=== PATIENT | male | born 1940 | race Hispanic/Latino ===

== ENCOUNTER 2020-01-09 17:25 | Emergency (ER) | payer MEDICARE ==
[2020-01-09] MEDS ORDERED: METOCLOPRAMIDE 10 MG/2 ML INJ IV ONE (18:29)
[2020-01-09] MEDS ORDERED: SODIUM CHLORIDE 0.9% 500 ML 500 ML IV ONE (18:29)
--- NOTE | 2020-01-09 18:31 | Emergency Department Report ---
ED General Adult HPI - General Chief complaint: Nausea/Vomiting/Diarrhea Stated complaint: NAUSEA,WEAKNESS PUI?: Yes Time Seen by Provider: 01/09/20 18:10 Source: patient, EMS ( EMS documentation not available at time of chart dictation ), RN notes reviewed, old records reviewed Mode of arrival: Stretcher Limitations: Physical Limitation - History of Present Illness Initial comments: The patient is a 79-year-old gentleman. I have evaluated him in the past. He does not have a local primary care doctor. During the entire history and physical examination, I had on complete personal protective equipment. Past medical history includes ruptured diverticulitis, and hypertension. Patient presents to the ER with a complaint of 3 to 4 days of mostly painless weakness. He has mild diffuse abdominal cramping and nausea, secondary to "being hungry." He endorses a mild headache, no neck pain, no chest pain, mild shortness of breath, question loss of taste or smell, no dysuria, hematuria or testicular pain. He lives at home by himself. He has mostly been self isolating and socially distance and, but "I have occasionally forgotten to wear my mask when I go outside." He was reportedly seen at another hospital last night, he believes [facility], and he was discharged. Patient lives at home by himself, and over the past few days, "mostly stays around the bed." -: Gradual, days(s) Location: head, abdomen Quality: aching Consistency: intermittent Improves with: rest Worsens with: movement - Related Data Home Medications Medication Instructions Recorded Confirmed Last Taken Lisinopril/Hydrochlorothiazide 1 tab PO QDAY 04/13/13 05/07/16 05/06/16 [Zestoretic 20-12.5 mg] Zolpidem [Ambien] 10 mg PO QHS PRN 04/13/13 05/08/16 05/06/16 Clopidogrel [Plavix] 75 mg PO QDAY 05/07/16 05/07/16 05/07/16 Tamsulosin [Flomax] 0.4 mg PO QDAY 05/07/16 05/07/16 05/07/16 Previous Rx's Medication Instructions Recorded Last Taken Type Dicyclomine [Bentyl] 10 mg PO QID PRN #20 capsule 05/08/16 Unknown Rx Ondansetron [Zofran Odt] 4 mg PO QID PRN #20 tab.rapdis 05/08/16 Unknown Rx polyethylene glycoL 3350 [Miralax 17 gm PO QDAY #30 packet 05/08/16 Unknown Rx 3350] Acetaminophen [Non-Aspirin Extra 500 mg PO Q6HR PRN #30 tablet 01/09/20 Unknown Rx Strength] Albuterol Sulfate [Proair 90 mcg IH Q4HR PRN #2 aer.pow.ba 01/09/20 Unknown Rx Respiclick] Metoclopramide [Reglan] 10 mg PO QID PRN #30 tablet 01/09/20 Unknown Rx Allergies Allergy/AdvReac Type Severity Reaction Status Date / Time Penicillins Allergy Rash Verified 04/13/13 13:47 ED Review of Systems ROS: Stated complaint: NAUSEA,WEAKNESS Other details as noted in HPI Constitutional: malaise, weakness. denies: fever Eyes: denies: eye discharge, vision change ENT: denies: throat pain Respiratory: cough, shortness of breath Cardiovascular: denies: chest pain, syncope Gastrointestinal: abdominal pain Genitourinary: denies: dysuria, testicular pain Musculoskeletal: myalgia Neurological: weakness Hematological/Lymphatic: easy bleeding ED Past Medical Hx - Past Medical History Previous Medical History?: Yes Hx Hypertension: Yes Hx CVA: Yes Hx Liver Disease: No Hx Renal Disease: No Hx HIV: No Additional medical history: hernia x 3. diverticulitis. 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, abd surgery - Social History Smoking Status: Never Smoker Substance Use Type: None - Medications Home Medications: Home Medications Medication Instructions Recorded Confirmed Last Taken Type Lisinopril/Hydrochlorothiazide 1 tab PO QDAY 04/13/13 05/07/16 05/06/16 History [Zestoretic 20-12.5 mg] Zolpidem [Ambien] 10 mg PO QHS PRN 04/13/13 05/08/16 05/06/16 History Clopidogrel [Plavix] 75 mg PO QDAY 05/07/16 05/07/16 05/07/16 History Tamsulosin [Flomax] 0.4 mg PO QDAY 05/07/16 05/07/16 05/07/16 History Dicyclomine [Bentyl] 10 mg PO QID PRN #20 capsule 05/08/16 Unknown Rx Ondansetron [Zofran Odt] 4 mg PO QID PRN #20 tab.rapdis 05/08/16 Unknown Rx polyethylene glycoL 3350 [Miralax 17 gm PO QDAY #30 packet 05/08/16 Unknown Rx 3350] Acetaminophen [Non-Aspirin Extra 500 mg PO Q6HR PRN #30 tablet 01/09/20 Unknown Rx Strength] Albuterol Sulfate [Proair 90 mcg IH Q4HR PRN #2 aer.pow.ba 01/09/20 Unknown Rx Respiclick] Metoclopramide [Reglan] 10 mg PO QID PRN #30 tablet 01/09/20 Unknown Rx ED Physical Exam - General Limitations: Physical Limitation General appearance: alert, in no apparent distress - Head Head exam: Present: atraumatic, normocephalic - Eye Eye exam: Present: normal appearance, EOMI, other (Visual acuity intact to finger counting, color perception, reading at a close distance). Absent: nystagmus - ENT ENT exam: Present: normal exam, normal orophraynx, mucous membranes moist, normal external ear exam - Neck Neck exam: Present: normal inspection, full ROM. Absent: tenderness, meningismus - Respiratory Respiratory exam: Present: other (Auscultation not performed secondary to lack of disposable stethoscope). Absent: respiratory distress, stridor - Cardiovascular Cardiovascular Exam: Present: other (Cardiac auscultation not performed secondary to lack of disposable stethoscope during the COVID pending). Absent: JVD - GI/Abdominal GI/Abdominal exam: Present: soft, normal bowel sounds. Absent: distended, tenderness, guarding, rebound, rigid, pulsatile mass - Rectal Rectal exam: Present: deferred - Extremities Exam Extremities exam: Present: normal inspection, full ROM, other (2+ pulses noted in the bilateral upper and lower extremities. There is no palpable cord. negative Homans sign. Muscular compartments are soft. The pelvis is stable.). Absent: pedal edema, calf tenderness - Back Exam Back exam: Present: normal inspection, full ROM. Absent: tenderness, CVA tenderness (R), CVA tenderness (L), paraspinal tenderness, vertebral tenderness - Neurological Exam Neurological exam: Present: alert, other (No facial droop. Tongue midline. Extraocular movements intact bilaterally. Facial sensation intact to light touch in V1, V2, V3 distribution bilaterally. 5 and a 5 strength in 4 extremities. Sensation intact to light touch in 4 extremities.). Absent: motor sensory deficit - Psychiatric Psychiatric exam: Present: flat affect - Skin Skin exam: Present: warm, dry, intact, normal color. Absent: rash ED Course Vital Signs 01/09/20 01/09/20 01/09/20 18:06 18:16 18:19 Temperature Pulse Rate 91 H Respiratory 14 15 Rate Blood Pressure 175/81 O2 Sat by Pulse 97 96 Oximetry 01/09/20 01/09/20 01/09/20 18:30 18:42 18:46 Temperature 98.2 F Pulse Rate 91 H 90 Respiratory 25 H 22 Rate Blood Pressure 181/85 181/85 O2 Sat by Pulse 95 98 Oximetry 01/09/20 01/09/20 01/09/20 19:00 19:16 19:30 Temperature Pulse Rate 87 90 89 Respiratory 18 22 19 Rate Blood Pressure 175/81 175/81 175/81 O2 Sat by Pulse 96 96 96 Oximetry 01/09/20 01/09/20 01/09/20 19:46 20:14 20:16 Temperature Pulse Rate 92 H 83 108 H Respiratory 18 23 Rate Blood Pressure 175/81 175/81 175/81 O2 Sat by Pulse 95 97 Oximetry 01/09/20 01/09/20 01/09/20 20:30 20:45 21:00 Temperature Pulse Rate 106 H 98 H 98 H Respiratory 13 12 17 Rate Blood Pressure 175/81 187/98 175/68 O2 Sat by Pulse 97 94 96 Oximetry 01/09/20 01/09/20 01/09/20 21:15 21:30 21:45 Temperature Pulse Rate 96 H 107 H 98 H Respiratory 27 H 17 26 H Rate Blood Pressure 183/70 163/105 177/78 O2 Sat by Pulse 96 98 91 Oximetry - Reevaluation(s) Reevaluation #1: 01/09/20 18:39 Differential diagnosis, including but not limited to: Pneumonia, urinary tract infection, COVID-19, electrolyte derangement, thyroid derangement, intra- abdominal infection, intracranial lesion Assessment and plan: 79-year-old gentleman presenting during the COVID pandemic with nonspecific weakness, nausea, loss of appetite, abdominal cramping, loss of taste, loss of smell, desaturates to 93% on room air while I am speaking to him, suspicious for COVID. Check basic labs, placed on isolation, obtain CT scan of the abdomen pelvis given surgical history, CT scan of the brain given mild complaint of headache, ABG on room air, urinalysis, EKG, and reassess. Reevaluation #2: 01/09/20 21:58 CT scan of the brain, chest, abdomen pelvis negative for acute findings. Patient making multiple phone calls and multiple requests to be discharged. His urinalysis is not consistent with acute infectious pathology. His arterial blood gases reviewed and appreciated, however, when I am speaking to the patient, he is saturating at 97% on room air. Furthermore, he was able to ambulate for 5 minutes on room oxygen, and did not desaturate. Advanced age is reviewed and appreciated, however, given objective diagnostic testing, lack of desaturation with ambulation, unremarkable diagnostic testing, prolonged period of emergency evaluation, desire to be discharged, patient does not meet criteria for hospitalization at this time, and he will be discharged to follow-up with an outpatient local primary care doctor. ED Medical Decision Making - Lab Data Result diagrams: 01/09/20 18:53 01/09/20 19:36 Vital Signs 01/09/20 01/09/20 01/09/20 18:06 18:16 18:19 Pulse Rate 91 H Respiratory 14 15 Rate Blood Pressure 175/81 O2 Sat by Pulse 97 96 Oximetry Vital Signs 01/09/20 01/09/20 01/09/20 18:06 18:16 18:19 Temperature Pulse Rate 91 H Respiratory 14 15 Rate Blood Pressure 175/81 O2 Sat by Pulse 97 96 Oximetry 01/09/20 18:42 Temperature 98.2 F Pulse Rate Respiratory Rate Blood Pressure O2 Sat by Pulse Oximetry Lab Results 01/09/20 01/09/20 01/09/20 Range/Units 18:17 18:45 18:53 WBC (4.5-11.0) K/mm3 RBC (3.65-5.03) M/mm3 Hgb (11.8-15.2) gm/dl Hct (35.5-45.6) % MCV (84-94) fl MCH (28-32) pg MCHC (32-34) % RDW (13.2-15.2) % Plt Count (140-440) K/mm3 Lymph % (Auto) (13.4-35.0) % [place] % (Auto) (0.0-7.3) % Eos % (Auto) (0.0-4.3) % Baso % (Auto) (0.0-1.8) % Lymph # (1.2-5.4) K/mm3 [place] # (0.0-0.8) K/mm3 Eos # (0.0-0.4) K/mm3 Baso # (0.0-0.1) K/mm3 Seg Neutrophils % (40.0-70.0) % Seg Neutrophils # (1.8-7.7) K/mm3 PT 12.3 (12.2-14.9) Sec. INR 0.90 (0.87-1.13) ABG pH 7.427 (7.350-7.450) pH Units ABG pCO2 38.6 mm Hg ABG pO2 73.4 L (80.0-90.0) mm Hg ABG HCO3 24.9 (20.0-26.0) mmol/L ABG O2 Saturation 95.9 (95.0-99.0) % ABG O2 Content 23.0 (0.0-44) ABG Base Excess 0.7 (-2.0-3.0) mmol/L ABG Hemoglobin 17.5 (14.0-18.0) gm/dl ABG Carboxyhemoglobin 1.4 (0.0-5.0) % ABG Methemoglobin 0.6 (0.0-1.5) % Oxyhemoglobin 94.0 L (95.0-99.0) % FiO2 21 % Sodium (137-145) mmol/L Potassium (3.6-5.0) mmol/L Chloride (98-107) mmol/L Carbon Dioxide (22-30) mmol/L Anion Gap mmol/L BUN (9-20) mg/dL Creatinine (0.8-1.5) mg/dL Estimated GFR ml/min BUN/Creatinine Ratio % Glucose (75-100) mg/dL POC Glucose 117 H (70-105) Lactic Acid (0.7-2.0) mmol/L Calcium (8.4-10.2) mg/dL Magnesium (1.7-2.3) mg/dL Total Bilirubin (0.1-1.2) mg/dL AST (5-40) units/L ALT (7-56) units/L Alkaline Phosphatase (35-129) units/L Total Creatine Kinase (55-170) units/L Troponin T (0.00-0.029) ng/mL Total Protein (6.3-8.2) g/dL Albumin (3.9-5) g/dL Albumin/Globulin Ratio % TSH (0.270-4.200) mlU/mL Salicylates (2.8-20.0) mg/dL Acetaminophen (10.0-30.0) ug/mL 01/09/20 01/09/20 01/09/20 Range/Units 18:53 18:53 18:53 WBC 7.8 (4.5-11.0) K/mm3 RBC 5.41 H (3.65-5.03) M/mm3 Hgb 17.2 H (11.8-15.2) gm/dl Hct 50.7 H (35.5-45.6) % MCV 94 (84-94) fl MCH 32 (28-32) pg MCHC 34 (32-34) % RDW 13.4 (13.2-15.2) % Plt Count 224 (140-440) K/mm3 Lymph % (Auto) 12.6 L (13.4-35.0) % [place] % (Auto) 6.7 (0.0-7.3) % Eos % (Auto) 0.1 (0.0-4.3) % Baso % (Auto) 0.4 (0.0-1.8) % Lymph # 1.0 L (1.2-5.4) K/mm3 [place] # 0.5 (0.0-0.8) K/mm3 Eos # 0.0 (0.0-0.4) K/mm3 Baso # 0.0 (0.0-0.1) K/mm3 Seg Neutrophils % 80.2 H (40.0-70.0) % Seg Neutrophils # 6.3 (1.8-7.7) K/mm3 PT (12.2-14.9) Sec. INR (0.87-1.13) ABG pH (7.350-7.450) pH Units ABG pCO2 mm Hg ABG pO2 (80.0-90.0) mm Hg ABG HCO3 (20.0-26.0) mmol/L ABG O2 Saturation (95.0-99.0) % ABG O2 Content (0.0-44) ABG Base Excess (-2.0-3.0) mmol/L ABG Hemoglobin (14.0-18.0) gm/dl ABG Carboxyhemoglobin (0.0-5.0) % ABG Methemoglobin (0.0-1.5) % Oxyhemoglobin (95.0-99.0) % FiO2 % Sodium 142 (137-145) mmol/L Potassium 3.8 (3.6-5.0) mmol/L Chloride 102.9 (98-107) mmol/L Carbon Dioxide 25 (22-30) mmol/L Anion Gap 18 mmol/L BUN 12 (9-20) mg/dL Creatinine 0.9 (0.8-1.5) mg/dL Estimated GFR > 60 ml/min BUN/Creatinine Ratio 13 % Glucose 119 H (75-100) mg/dL POC Glucose (70-105) Lactic Acid (0.7-2.0) mmol/L Calcium 10.4 H (8.4-10.2) mg/dL Magnesium 2.10 (1.7-2.3) mg/dL Total Bilirubin 0.40 (0.1-1.2) mg/dL AST 33 (5-40) units/L ALT 30 (7-56) units/L Alkaline Phosphatase 76 (35-129) units/L Total Creatine Kinase 165 (55-170) units/L Troponin T < 0.010 (0.00-0.029) ng/mL Total Protein 7.5 (6.3-8.2) g/dL Albumin 4.8 (3.9-5) g/dL Albumin/Globulin Ratio 1.8 % TSH 0.706 (0.270-4.200) mlU/mL Salicylates (2.8-20.0) mg/dL Acetaminophen (10.0-30.0) ug/mL 01/09/20 01/09/20 01/09/20 Range/Units 18:53 18:53 18:53 WBC (4.5-11.0) K/mm3 RBC (3.65-5.03) M/mm3 Hgb (11.8-15.2) gm/dl Hct (35.5-45.6) % MCV (84-94) fl MCH (28-32) pg MCHC (32-34) % RDW (13.2-15.2) % Plt Count (140-440) K/mm3 Lymph % (Auto) (13.4-35.0) % [place] % (Auto) (0.0-7.3) % Eos % (Auto) (0.0-4.3) % Baso % (Auto) (0.0-1.8) % Lymph # (1.2-5.4) K/mm3 [place] # (0.0-0.8) K/mm3 Eos # (0.0-0.4) K/mm3 Baso # (0.0-0.1) K/mm3 Seg Neutrophils % (40.0-70.0) % Seg Neutrophils # (1.8-7.7) K/mm3 PT (12.2-14.9) Sec. INR (0.87-1.13) ABG pH (7.350-7.450) pH Units ABG pCO2 mm Hg ABG pO2 (80.0-90.0) mm Hg ABG HCO3 (20.0-26.0) mmol/L ABG O2 Saturation (95.0-99.0) % ABG O2 Content (0.0-44) ABG Base Excess (-2.0-3.0) mmol/L ABG Hemoglobin (14.0-18.0) gm/dl ABG Carboxyhemoglobin (0.0-5.0) % ABG Methemoglobin (0.0-1.5) % Oxyhemoglobin (95.0-99.0) % FiO2 % Sodium (137-145) mmol/L Potassium (3.6-5.0) mmol/L Chloride (98-107) mmol/L Carbon Dioxide (22-30) mmol/L Anion Gap mmol/L BUN (9-20) mg/dL Creatinine (0.8-1.5) mg/dL Estimated GFR ml/min BUN/Creatinine Ratio % Glucose (75-100) mg/dL POC Glucose (70-105) Lactic Acid 1.70 (0.7-2.0) mmol/L Calcium (8.4-10.2) mg/dL Magnesium (1.7-2.3) mg/dL Total Bilirubin (0.1-1.2) mg/dL AST (5-40) units/L ALT (7-56) units/L Alkaline Phosphatase (35-129) units/L Total Creatine Kinase (55-170) units/L Troponin T (0.00-0.029) ng/mL Total Protein (6.3-8.2) g/dL Albumin (3.9-5) g/dL Albumin/Globulin Ratio % TSH (0.270-4.200) mlU/mL Salicylates < 0.3 L (2.8-20.0) mg/dL Acetaminophen 5.0 L (10.0-30.0) ug/mL Vital Signs 01/09/20 01/09/20 01/09/20 18:06 18:16 18:19 Temperature Pulse Rate 91 H Respiratory 14 15 Rate Blood Pressure 175/81 O2 Sat by Pulse 97 96 Oximetry 01/09/20 18:42 Temperature 98.2 F Pulse Rate Respiratory Rate Blood Pressure O2 Sat by Pulse Oximetry Lab Results 01/09/20 01/09/20 01/09/20 Range/Units 18:17 18:45 18:53 WBC (4.5-11.0) K/mm3 RBC (3.65-5.03) M/mm3 Hgb (11.8-15.2) gm/dl Hct (35.5-45.6) % MCV (84-94) fl MCH (28-32) pg MCHC (32-34) % RDW (13.2-15.2) % Plt Count (140-440) K/mm3 Lymph % (Auto) (13.4-35.0) % [place] % (Auto) (0.0-7.3) % Eos % (Auto) (0.0-4.3) % Baso % (Auto) (0.0-1.8) % Lymph # (1.2-5.4) K/mm3 [place] # (0.0-0.8) K/mm3 Eos # (0.0-0.4) K/mm3 Baso # (0.0-0.1) K/mm3 Seg Neutrophils % (40.0-70.0) % Seg Neutrophils # (1.8-7.7) K/mm3 PT 12.3 (12.2-14.9) Sec. INR 0.90 (0.87-1.13) D-Dimer (0-234) ng/mlDDU ABG pH 7.427 (7.350-7.450) pH Units ABG pCO2 38.6 mm Hg ABG pO2 73.4 L (80.0-90.0) mm Hg ABG HCO3 24.9 (20.0-26.0) mmol/L ABG O2 Saturation 95.9 (95.0-99.0) % ABG O2 Content 23.0 (0.0-44) ABG Base Excess 0.7 (-2.0-3.0) mmol/L ABG Hemoglobin 17.5 (14.0-18.0) gm/dl ABG Carboxyhemoglobin 1.4 (0.0-5.0) % ABG Methemoglobin 0.6 (0.0-1.5) % Oxyhemoglobin 94.0 L (95.0-99.0) % FiO2 21 % Sodium (137-145) mmol/L Potassium (3.6-5.0) mmol/L Chloride (98-107) mmol/L Carbon Dioxide (22-30) mmol/L Anion Gap mmol/L BUN (9-20) mg/dL Creatinine (0.8-1.5) mg/dL Estimated GFR ml/min BUN/Creatinine Ratio % Glucose (75-100) mg/dL POC Glucose 117 H (70-105) Lactic Acid (0.7-2.0) mmol/L Calcium (8.4-10.2) mg/dL Magnesium (1.7-2.3) mg/dL Ferritin (13.0-400.0) ng/mL Total Bilirubin (0.1-1.2) mg/dL AST (5-40) units/L ALT (7-56) units/L Alkaline Phosphatase (35-129) units/L Lactate Dehydrogenase (91-180) units/L Total Creatine Kinase (55-170) units/L Troponin T (0.00-0.029) ng/mL C-Reactive Protein (0.00-1.30) mg/dL Total Protein (6.3-8.2) g/dL Albumin (3.9-5) g/dL Albumin/Globulin Ratio % TSH (0.270-4.200) mlU/mL Urine Color (Yellow) Urine Turbidity (Clear) Urine pH (5.0-7.0) Ur Specific [place] (1.003-1.030) Urine Protein (Negative) mg/dL Urine Glucose (UA) (Negative) mg/dL Urine Ketones (Negative) mg/dL Urine Blood (Negative) Urine Nitrite (Negative) Urine Bilirubin (Negative) Urine Urobilinogen (<2.0) mg/dL Ur Leukocyte Esterase (Negative) Urine WBC (Auto) (0.0-6.0) /HPF Urine RBC (Auto) (0.0-6.0) /HPF Urine Mucus /HPF Salicylates (2.8-20.0) mg/dL Acetaminophen (10.0-30.0) ug/mL Blood Type Antibody Screen 01/09/20 01/09/20 01/09/20 Range/Units 18:53 18:53 18:53 WBC 7.8 (4.5-11.0) K/mm3 RBC 5.41 H (3.65-5.03) M/mm3 Hgb 17.2 H (11.8-15.2) gm/dl Hct 50.7 H (35.5-45.6) % MCV 94 (84-94) fl MCH 32 (28-32) pg MCHC 34 (32-34) % RDW 13.4 (13.2-15.2) % Plt Count 224 (140-440) K/mm3 Lymph % (Auto) 12.6 L (13.4-35.0) % [place] % (Auto) 6.7 (0.0-7.3) % Eos % (Auto) 0.1 (0.0-4.3) % Baso % (Auto) 0.4 (0.0-1.8) % Lymph # 1.0 L (1.2-5.4) K/mm3 [place] # 0.5 (0.0-0.8) K/mm3 Eos # 0.0 (0.0-0.4) K/mm3 Baso # 0.0 (0.0-0.1) K/mm3 Seg Neutrophils % 80.2 H (40.0-70.0) % Seg Neutrophils # 6.3 (1.8-7.7) K/mm3 PT (12.2-14.9) Sec. INR (0.87-1.13) D-Dimer (0-234) ng/mlDDU ABG pH (7.350-7.450) pH Units ABG pCO2 mm Hg ABG pO2 (80.0-90.0) mm Hg ABG HCO3 (20.0-26.0) mmol/L ABG O2 Saturation (95.0-99.0) % ABG O2 Content (0.0-44) ABG Base Excess (-2.0-3.0) mmol/L ABG Hemoglobin (14.0-18.0) gm/dl ABG Carboxyhemoglobin (0.0-5.0) % ABG Methemoglobin (0.0-1.5) % Oxyhemoglobin (95.0-99.0) % FiO2 % Sodium 142 (137-145) mmol/L Potassium 3.8 (3.6-5.0) mmol/L Chloride 102.9 (98-107) mmol/L Carbon Dioxide 25 (22-30) mmol/L Anion Gap 18 mmol/L BUN 12 (9-20) mg/dL Creatinine 0.9 (0.8-1.5) mg/dL Estimated GFR > 60 ml/min BUN/Creatinine Ratio 13 % Glucose 119 H (75-100) mg/dL POC Glucose (70-105) Lactic Acid (0.7-2.0) mmol/L Calcium 10.4 H (8.4-10.2) mg/dL Magnesium 2.10 (1.7-2.3) mg/dL Ferritin (13.0-400.0) ng/mL Total Bilirubin 0.40 (0.1-1.2) mg/dL AST 33 (5-40) units/L ALT 30 (7-56) units/L Alkaline Phosphatase 76 (35-129) units/L Lactate Dehydrogenase (91-180) units/L Total Creatine Kinase 165 (55-170) units/L Troponin T < 0.010 (0.00-0.029) ng/mL C-Reactive Protein (0.00-1.30) mg/dL Total Protein 7.5 (6.3-8.2) g/dL Albumin 4.8 (3.9-5) g/dL Albumin/Globulin Ratio 1.8 % TSH 0.706 (0.270-4.200) mlU/mL Urine Color (Yellow) Urine Turbidity (Clear) Urine pH (5.0-7.0) Ur Specific [place] (1.003-1.030) Urine Protein (Negative) mg/dL Urine Glucose (UA) (Negative) mg/dL Urine Ketones (Negative) mg/dL Urine Blood (Negative) Urine Nitrite (Negative) Urine Bilirubin (Negative) Urine Urobilinogen (<2.0) mg/dL Ur Leukocyte Esterase (Negative) Urine WBC (Auto) (0.0-6.0) /HPF Urine RBC (Auto) (0.0-6.0) /HPF Urine Mucus /HPF Salicylates (2.8-20.0) mg/dL Acetaminophen (10.0-30.0) ug/mL Blood Type Antibody Screen 01/09/20 01/09/20 01/09/20 Range/Units 18:53 18:53 18:53 WBC (4.5-11.0) K/mm3 RBC (3.65-5.03) M/mm3 Hgb (11.8-15.2) gm/dl Hct (35.5-45.6) % MCV (84-94) fl MCH (28-32) pg MCHC (32-34) % RDW (13.2-15.2) % Plt Count (140-440) K/mm3 Lymph % (Auto) (13.4-35.0) % [place] % (Auto) (0.0-7.3) % Eos % (Auto) (0.0-4.3) % Baso % (Auto) (0.0-1.8) % Lymph # (1.2-5.4) K/mm3 [place] # (0.0-0.8) K/mm3 Eos # (0.0-0.4) K/mm3 Baso # (0.0-0.1) K/mm3 Seg Neutrophils % (40.0-70.0) % Seg Neutrophils # (1.8-7.7) K/mm3 PT (12.2-14.9) Sec. INR (0.87-1.13) D-Dimer (0-234) ng/mlDDU ABG pH (7.350-7.450) pH Units ABG pCO2 mm Hg ABG pO2 (80.0-90.0) mm Hg ABG HCO3 (20.0-26.0) mmol/L ABG O2 Saturation (95.0-99.0) % ABG O2 Content (0.0-44) ABG Base Excess (-2.0-3.0) mmol/L ABG Hemoglobin (14.0-18.0) gm/dl ABG Carboxyhemoglobin (0.0-5.0) % ABG Methemoglobin (0.0-1.5) % Oxyhemoglobin (95.0-99.0) % FiO2 % Sodium (137-145) mmol/L Potassium (3.6-5.0) mmol/L Chloride (98-107) mmol/L Carbon Dioxide (22-30) mmol/L Anion Gap mmol/L BUN (9-20) mg/dL Creatinine (0.8-1.5) mg/dL Estimated GFR ml/min BUN/Creatinine Ratio % Glucose (75-100) mg/dL POC Glucose (70-105) Lactic Acid 1.70 (0.7-2.0) mmol/L Calcium (8.4-10.2) mg/dL Magnesium (1.7-2.3) mg/dL Ferritin (13.0-400.0) ng/mL Total Bilirubin (0.1-1.2) mg/dL AST (5-40) units/L ALT (7-56) units/L Alkaline Phosphatase (35-129) units/L Lactate Dehydrogenase (91-180) units/L Total Creatine Kinase (55-170) units/L Troponin T (0.00-0.029) ng/mL C-Reactive Protein (0.00-1.30) mg/dL Total Protein (6.3-8.2) g/dL Albumin (3.9-5) g/dL Albumin/Globulin Ratio % TSH (0.270-4.200) mlU/mL Urine Color (Yellow) Urine Turbidity (Clear) Urine pH (5.0-7.0) Ur Specific [place] (1.003-1.030) Urine Protein (Negative) mg/dL Urine Glucose (UA) (Negative) mg/dL Urine Ketones (Negative) mg/dL Urine Blood (Negative) Urine Nitrite (Negative) Urine Bilirubin (Negative) Urine Urobilinogen (<2.0) mg/dL Ur Leukocyte Esterase (Negative) Urine WBC (Auto) (0.0-6.0) /HPF Urine RBC (Auto) (0.0-6.0) /HPF Urine Mucus /HPF Salicylates < 0.3 L (2.8-20.0) mg/dL Acetaminophen 5.0 L (10.0-30.0) ug/mL Blood Type Antibody Screen 01/09/20 01/09/20 01/09/20 Range/Units 19:36 19:36 19:36 WBC (4.5-11.0) K/mm3 RBC (3.65-5.03) M/mm3 Hgb (11.8-15.2) gm/dl Hct (35.5-45.6) % MCV (84-94) fl MCH (28-32) pg MCHC (32-34) % RDW (13.2-15.2) % Plt Count (140-440) K/mm3 Lymph % (Auto) (13.4-35.0) % [place] % (Auto) (0.0-7.3) % Eos % (Auto) (0.0-4.3) % Baso % (Auto) (0.0-1.8) % Lymph # (1.2-5.4) K/mm3 [place] # (0.0-0.8) K/mm3 Eos # (0.0-0.4) K/mm3 Baso # (0.0-0.1) K/mm3 Seg Neutrophils % (40.0-70.0) % Seg Neutrophils # (1.8-7.7) K/mm3 PT (12.2-14.9) Sec. INR (0.87-1.13) D-Dimer 182.03 (0-234) ng/mlDDU ABG pH (7.350-7.450) pH Units ABG pCO2 mm Hg ABG pO2 (80.0-90.0) mm Hg ABG HCO3 (20.0-26.0) mmol/L ABG O2 Saturation (95.0-99.0) % ABG O2 Content (0.0-44) ABG Base Excess (-2.0-3.0) mmol/L ABG Hemoglobin (14.0-18.0) gm/dl ABG Carboxyhemoglobin (0.0-5.0) % ABG Methemoglobin (0.0-1.5) % Oxyhemoglobin (95.0-99.0) % FiO2 % Sodium (137-145) mmol/L Potassium (3.6-5.0) mmol/L Chloride (98-107) mmol/L Carbon Dioxide (22-30) mmol/L Anion Gap mmol/L BUN (9-20) mg/dL Creatinine (0.8-1.5) mg/dL Estimated GFR ml/min BUN/Creatinine Ratio % Glucose 117 H (75-100) mg/dL POC Glucose (70-105) Lactic Acid (0.7-2.0) mmol/L Calcium (8.4-10.2) mg/dL Magnesium (1.7-2.3) mg/dL Ferritin 152.4 (13.0-400.0) ng/mL Total Bilirubin (0.1-1.2) mg/dL AST (5-40) units/L ALT (7-56) units/L Alkaline Phosphatase (35-129) units/L Lactate Dehydrogenase 235 H (91-180) units/L Total Creatine Kinase (55-170) units/L Troponin T (0.00-0.029) ng/mL C-Reactive Protein 0.20 (0.00-1.30) mg/dL Total Protein (6.3-8.2) g/dL Albumin (3.9-5) g/dL Albumin/Globulin Ratio % TSH (0.270-4.200) mlU/mL Urine Color (Yellow) Urine Turbidity (Clear) Urine pH (5.0-7.0) Ur Specific [place] (1.003-1.030) Urine Protein (Negative) mg/dL Urine Glucose (UA) (Negative) mg/dL Urine Ketones (Negative) mg/dL Urine Blood (Negative) Urine Nitrite (Negative) Urine Bilirubin (Negative) Urine Urobilinogen (<2.0) mg/dL Ur Leukocyte Esterase (Negative) Urine WBC (Auto) (0.0-6.0) /HPF Urine RBC (Auto) (0.0-6.0) /HPF Urine Mucus /HPF Salicylates (2.8-20.0) mg/dL Acetaminophen (10.0-30.0) ug/mL Blood Type Antibody Screen 01/09/20 01/09/20 Range/Units 19:36 21:42 WBC (4.5-11.0) K/mm3 RBC (3.65-5.03) M/mm3 Hgb (11.8-15.2) gm/dl Hct (35.5-45.6) % MCV (84-94) fl MCH (28-32) pg MCHC (32-34) % RDW (13.2-15.2) % Plt Count (140-440) K/mm3 Lymph % (Auto) (13.4-35.0) % [place] % (Auto) (0.0-7.3) % Eos % (Auto) (0.0-4.3) % Baso % (Auto) (0.0-1.8) % Lymph # (1.2-5.4) K/mm3 [place] # (0.0-0.8) K/mm3 Eos # (0.0-0.4) K/mm3 Baso # (0.0-0.1) K/mm3 Seg Neutrophils % (40.0-70.0) % Seg Neutrophils # (1.8-7.7) K/mm3 PT (12.2-14.9) Sec. INR (0.87-1.13) D-Dimer (0-234) ng/mlDDU ABG pH (7.350-7.450) pH Units ABG pCO2 mm Hg ABG pO2 (80.0-90.0) mm Hg ABG HCO3 (20.0-26.0) mmol/L ABG O2 Saturation (95.0-99.0) % ABG O2 Content (0.0-44) ABG Base Excess (-2.0-3.0) mmol/L ABG Hemoglobin (14.0-18.0) gm/dl ABG Carboxyhemoglobin (0.0-5.0) % ABG Methemoglobin (0.0-1.5) % Oxyhemoglobin (95.0-99.0) % FiO2 % Sodium (137-145) mmol/L Potassium (3.6-5.0) mmol/L Chloride (98-107) mmol/L Carbon Dioxide (22-30) mmol/L Anion Gap mmol/L BUN (9-20) mg/dL Creatinine (0.8-1.5) mg/dL Estimated GFR ml/min BUN/Creatinine Ratio % Glucose (75-100) mg/dL POC Glucose (70-105) Lactic Acid (0.7-2.0) mmol/L Calcium (8.4-10.2) mg/dL Magnesium (1.7-2.3) mg/dL Ferritin (13.0-400.0) ng/mL Total Bilirubin (0.1-1.2) mg/dL AST (5-40) units/L ALT (7-56) units/L Alkaline Phosphatase (35-129) units/L Lactate Dehydrogenase (91-180) units/L Total Creatine Kinase (55-170) units/L Troponin T (0.00-0.029) ng/mL C-Reactive Protein (0.00-1.30) mg/dL Total Protein (6.3-8.2) g/dL Albumin (3.9-5) g/dL Albumin/Globulin Ratio % TSH (0.270-4.200) mlU/mL Urine Color Colorless (Yellow) Urine Turbidity Clear (Clear) Urine pH 7.0 (5.0-7.0) Ur Specific [place] 1.050 H (1.003-1.030) Urine Protein <15 mg/dl (Negative) mg/dL Urine Glucose (UA) Neg (Negative) mg/dL Urine Ketones 20 (Negative) mg/dL Urine Blood Neg (Negative) Urine Nitrite Neg (Negative) Urine Bilirubin Neg (Negative) Urine Urobilinogen < 2.0 (<2.0) mg/dL Ur Leukocyte Esterase Neg (Negative) Urine WBC (Auto) < 1.0 (0.0-6.0) /HPF Urine RBC (Auto) 2.0 (0.0-6.0) /HPF Urine Mucus Few /HPF Salicylates (2.8-20.0) mg/dL Acetaminophen (10.0-30.0) ug/mL Blood Type O POSITIVE Antibody Screen Negative - EKG Data -: EKG Interpreted by La EKG shows normal: sinus rhythm Rate: normal - EKG Data When compared to previous EKG there are: previous EKG unavailable 01/09/20 18:52 EKG is abnormal without prior for comparison. Sinus rhythm, 88 bpm, borderline leftward axis deviation, left anterior fascicular block, incomplete right bundle branch block, motion artifact, QTC is prolonged, the EKG is abnormal, the EKG is not a STEMI. - Radiology Data Radiology results: pending, report reviewed, image reviewed Print Report Referring Physician: ALEXIA TORREZ Patient Name: AYUSH RIOS Date of : 1940 Sex: Male Report Date: 2020-01-09 Report Status: Finalized Findings [facility] [address] [place] [address] XRay Report Signed Patient: AYUSH RIOS MR#: [id number] : 1940 Acct:[id number] Age/Sex: 79 / M ADM Date: 01/09/20 Loc: ED Attending Dr: Ordering Physician: ALEXIA TORREZ MD Date of Service: 01/09/20 Procedure(s): XR chest 1V ap Accession Number(s): [id number] cc: ALEXIA TORREZ MD Fluoro Time In Minutes: CHEST 1 VIEW INDICATION: MAIN. COMPARISON: None FINDINGS: SUPPORT DEVICES: None. HEART: Within normal limits. LUNGS/PLEURA: No acute air space or interstitial disease. ADDITIONAL FINDINGS: None. IMPRESSION: 1. No acu te findings. Signer Name: Scott Lemus MD Signed: 01/09/2020 7:57 PM Workstation Name: [id number] Transcribed By: JW Dictated By: Scott Lemus MD Electronically Authenticated By: Scott Lemus MD Signed Date/Time: 01/09/201956 DD/ 56 TD/TT: Critical care attestation.: If time is entered above; I have spent that time in minutes in the direct care of this critically ill patient, excluding procedure time. ED Disposition Clinical Impression: General medical exam, Suspected 2019 novel coronavirus infection Disposition: DC-01 TO HOME OR SELFCARE Is pt being admited?: No Does the pt Need Aspirin: No Condition: Stable Instructions: COVID-19 Additional Instructions: As we discussed, the patient most likely has novel coronavirus/COVID. the symptoms of COVID will typically persist 10 to 14 days. There is no cure at this time for COVID. Please make certain to self isolate and self quarantine, follow-up with an outpatient primary care doctor within the next 3 to 5 days, wash hands with soap and water frequently, thoroughly and often, patient may take the prescribed medications as needed and directed. Advance diet and drink plenty of fluids as tolerated. Avoid interactions with the very elderly, very young, and those with chronic medical conditions. Return to the emergency room right away with new pain, worsening pain, migration of pain, projectile vomiting, change in mental status, confusion, inability to tolerate liquid feeds, new, worsened or different symptoms not present on the initial emergency room evaluation. Do not take metformin medication for the next 2 days if patient takes this medication. Take the pain medication, nausea medication, cough medicine and breathing medicine as directed. Nonemergent blood tests and cultures were sent today, and results will be available in the next 3 to 5 days. Please have a primary care doctor contact the medical records department to obtain culture results. Referrals: JASON POE MD [Staff Physician] - 3-5 Days [facility] [Provider Group] - 3-5 Days
[2020-01-09 19:08] LABS: ABG Base Excess 0.7 mmol/L (-2.0-3.0); ABG HCO3 24.9 mmol/L (20.0-26.0); ABG Methemoglobin 0.6 % (0.0-1.5); ABG Oxygen Saturation 95.9 % (95.0-99.0); ABG PCO2 38.6 mm Hg; ABG PH 7.427 pH Units (7.350-7.450); ABG PO2 73.4 mm Hg (80.0-90.0)
[2020-01-09 19:25] LABS: Basophils % (Auto) 0.4 % (0.0-1.8); Eosinophils % (Auto) 0.1 % (0.0-4.3); Hematocrit 50.7 % (35.5-45.6); Hemoglobin 17.2 gm/dl (11.8-15.2); Lymphocytes % (Auto) 12.6 % (13.4-35.0); Mean Corpuscular HGB Conc 34 % (32-34); Mean Corpuscular Volume 94 fl (84-94); Monocytes # (Auto) 0.5 K/mm3 (0.0-0.8); Monocytes % (Auto) 6.7 % (0.0-7.3); Platelet Count 224 K/mm3 (140-440); Red Blood Count 5.41 M/mm3 (3.65-5.03); Red Cell Distribution Width 13.4 % (13.2-15.2)
[2020-01-09 19:27] LABS: Alanine Aminotransferase 30 units/L (7-56); Albumin 4.8 g/dL (3.9-5); BUN/Creatinine Ratio 13; Blood Urea Nitrogen 12 mg/dL (9-20); Calcium 10.4 mg/dL (8.4-10.2); Hemolysis Index 10
[2020-01-09 19:37] LABS: INR 0.9 (0.87-1.13)
--- NOTE | 2020-01-09 20:01 | XRay Report ---
CHEST 1 VIEW INDICATION: MAIN. COMPARISON: None FINDINGS: SUPPORT DEVICES: None. HEART: Within normal limits. LUNGS/PLEURA: No acute air space or interstitial disease. ADDITIONAL FINDINGS: None. IMPRESSION: 1. No acute findings. Signer Name: Scott Lemus MD Signed: 01/09/2020 7:57 PM Workstation Name: [id number]
[2020-01-09 20:16] LABS: C-Reactive Protein 0.2 mg/dL (0.00-1.30)
--- NOTE | 2020-01-09 20:50 | Cat Scan Report ---
CT head without contrast HISTORY: weakness, headache. TECHNIQUE: Axial imaging performed from the skull apex through the skull base without the use of con trast. All CT scans at this location are performed using CT dose reduction for ALARA by means of aut omated exposure control. COMPARISON: None FINDINGS: Parenchyma: No acute intracranial hemorrhage or parenchymal abnormality. Ventricles: There is mild diffuse brain atrophy with commensurate ventricular enlargement which is l ikely age appropriate. Soft tissues: Soft tissues including the orbits appear normal. Bones: No acute osseous abnormality. Sinuses: Sinuses and mastoid air cells are clear. IMPRESSION: No acute abnormality. Signer Name: Scott Lemus MD Signed: 01/09/2020 8:46 PM Workstation Name: [id number]
--- NOTE | 2020-01-09 20:52 | Cat Scan Report ---
CTA chest with contrast INDICATION : hypoxia, pe vs covid vs pna. TECHNIQUE: Axial imaging performed through the chest, with contrast bolus timing set to maximize opa cification of the pulmonary arteries. 3-plane MIP reformatted images were obtained. All CT scans at this location are performed using CT dose reduction for ALARA by means of automated exposure control. 100 mL of intravenous contrast administered. COMPARISON: None FINDINGS: Bolus: Contrast bolus timing is adequate. PTE: No filling defect is present to suggest PTE. Mediastinum: Heart and great vessels appear normal. No pathologic mediastinal adenopathy. Lungs: Lungs are clear. Upper abdomen: Limited imaging of the upper abdomen shows nothing acute. There are hepatic cysts. Bones: Degenerative changes in the spine with nothing acute. IMPRESSION: Negative for PTE. Clear lungs. Signer Name: Scott Lemus MD Signed: 01/09/2020 8:48 PM Workstation Name: [id number]
--- NOTE | 2020-01-09 21:22 | Cat Scan Report ---
CT ABDOMEN AND PELVIS WITHOUT CONTRAST HISTORY: weakness, abd pain. COMPARISON: None. TECHNIQUE: CT images of the abdomen and pelvis were obtained without administration of intravenous co ntrast. All CT scans at this location are performed using CT dose reduction for ALARA by means of au tomated exposure control. FINDINGS: Lungs/bones: The lung bases are clear. There are degenerative changes within the spine and pelvis wi th no acute osseous abnormality identified. Abdomen/pelvis: There are simple hepatic cysts. The liver is otherwise normal. The gallbladder, sple en, pancreas, adrenals, and proximal GI tract appear unremarkable. There are simple bilateral renal cysts. Prostate is enlarged and indents the bladder base. The bladder itself is unremarkable. No pelvic free fluid. No acute colonic abnormality identified. There is an old ostomy site in the left lower quadra nt with fat-containing hernia. No inflammatory change identified. IMPRESSION: 1. No acute abnormality identified. 2. Incidental findings as above. Signer Name: Scott Lemus MD Signed: 01/09/2020 9:18 PM Workstation Name: [id number]
[2020-01-09 21:55] LABS: Bilirubin,Urine NEG (Negative); Blood,Urine NEG (Negative); Color,Urine Colorless (Yellow); Mucus,Urine FEW /HPF; Protein,Urine <15 mg/dL mg/dL (Negative); Urobilinogen,Urine < 2.0 mg/dL (<2.0); WBC,Urine < 1.0 /HPF (0.0-6.0)
[2020-01-09 21:59] VITALS: BP 177/78
== END 2020-01-09 23:30 | disposition home or self-care (01) ==
LOC: ED 17:25
DX: R53.1 Weakness (principal); Z20.828 Contact with and (suspected) exposure to other viral communicable diseases; Z00.00 Encounter for general adult medical examination without abnormal findings; R10.84 Generalized abdominal pain; R51 Headache; I10 Essential (primary) hypertension; Z86.73 Personal history of transient ischemic attack (TIA), and cerebral infarction without residual deficits; Z98.890 Other specified postprocedural states; Z79.899 Other long term (current) drug therapy; Z88.0 Allergy status to penicillin
CPT/HCPCS: 36415; 70450; 71045; 71275; 74177; 80053; 81001; 82140; 82550; 82728; 82803; 82947; 83615; 83735; 84145; 84443; 84484; 85025; 85379; 85610; 86140; 86850; 86900; 86901; 87040; 93005; 96374; 99285; J2765; J7040; Q9967; 80320; 82962; G0480

== ENCOUNTER 2020-03-10 12:46 | Emergency (ER) | payer MEDICARE ==
[2020-03-10] MEDS ORDERED: HYDROmorphone 1 MG/1 ML INJ IV ONE ×3 (13:21→15:15)
[2020-03-10] MEDS ORDERED: ONDANSETRON 4 MG/2 ML INJ IV ONE (13:21)
[2020-03-10] MEDS ORDERED: SODIUM CHLORIDE 0.9% 250ML 250 ML IV ONE (13:21)
--- NOTE | 2020-03-10 13:23 | Emergency Department Report ---
<ALEXIA TORREZ - Last Filed: 03/10/20 15:39> ED General Adult HPI - General Chief complaint: Abdominal Pain Stated complaint: SEVERE GROIN PAIN PUI?: No Time Seen by Provider: 03/10/20 13:11 Source: patient, EMS ( EMS documentation not available at time of chart dictation ), RN notes reviewed, old records reviewed Mode of arrival: Stretcher Limitations: Physical Limitation - History of Present Illness Initial comments: The patient was evaluated in the emergency department for symptoms described in the history of present illness. He/she was evaluated in the context of the global COVID-19 pandemic, which necessitated consideration that the patient might be at risk for infection with the virus that causes COVID-19. Institutional protocols and algorithms that pertain to the evaluation of gissel ents at risk for COVID-19 are in a state of rapid change based on information released by regulatory bodies including the CDC and federal and state organizations. These policies and algorithms were followed during the patient's care in the emergency department. Please note that these policies, procedures and recommendations changed on a rapid basis. Mr. Rios is a 80-year-old gentleman who is known to myself previously. During the entire history and physical examination, I was chaperoned and escorted by nurse rashida Iraheta Mr. Rios presents today with a complaint of nontraumatic right lower quadrant pain, groin pain, present for the past 2 to 3 days. The pain does not radiate anywhere. The pain is sharp, and increases with palpation, range of motion, and it decreases with rest. No complaint of headache, neck pain, chest pain, shortness of breath, testicular pain, urinary symptoms. He states he is not sure if he has had pain like this before. He feels mildly nauseous. No fevers that he is aware of. -: Gradual, days(s) Location: abdomen, pelvis Radiation: non-radiation Severity scale (0 -10): 10 Quality: aching Consistency: intermittent Improves with: rest Worsens with: movement - Related Data Home Medications Medication Instructions Recorded Confirmed Last Taken Lisinopril/Hydrochlorothiazide 1 tab PO QDAY 04/13/13 05/07/16 05/06/16 [Zestoretic 20-12.5 mg] Zolpidem [Ambien] 10 mg PO QHS PRN 04/13/13 05/08/16 05/06/16 Clopidogrel [Plavix] 75 mg PO QDAY 05/07/16 05/07/16 05/07/16 Tamsulosin [Flomax] 0.4 mg PO QDAY 05/07/16 05/07/16 05/07/16 Previous Rx's Medication Instructions Recorded Last Taken Type Dicyclomine [Bentyl] 10 mg PO QID PRN #20 capsule 05/08/16 Unknown Rx Ondansetron [Zofran Odt] 4 mg PO QID PRN #20 tab.rapdis 05/08/16 Unknown Rx polyethylene glycoL 3350 [Miralax 17 gm PO QDAY #30 packet 05/08/16 Unknown Rx 3350] Acetaminophen [Non-Aspirin Extra 500 mg PO Q6HR PRN #30 tablet 01/09/20 Unknown Rx Strength] Albuterol Sulfate [Proair 90 mcg IH Q4HR PRN #2 aer.pow.ba 01/09/20 Unknown Rx Respiclick] Metoclopramide [Reglan] 10 mg PO QID PRN #30 tablet 01/09/20 Unknown Rx HYDROcodone/APAP 5-325 [[place] 1 each PO Q6HR PRN #5 tablet 03/10/20 Unknown Rx 5/325] Polyethylene Glycol/Elect 4,000 ml PO ONCE #1 bottle 03/10/20 Unknown Rx [Golytely] Tamsulosin [Flomax] 0.4 mg PO QDAY 7 Days #7 cap 03/10/20 Unknown Rx Allergies Allergy/AdvReac Type Severity Reaction Status Date / Time Penicillins Allergy Rash Verified 04/13/13 13:47 ED Review of Systems Constitutional: denies: diaphoresis Eyes: denies: eye discharge Respiratory: denies: cough Cardiovascular: denies: chest pain Gastrointestinal: abdominal pain Genitourinary: denies: dysuria, testicular pain, testicular mass Musculoskeletal: myalgia Skin: denies: lesions Neurological: weakness (Global weakness but no focal extremity weakness and no numbness) ED Past Medical Hx - Past Medical History Hx Hypertension: Yes Hx CVA: Yes Hx Liver Disease: No Hx Renal Disease: No Hx HIV: No Additional medical history: hernia x 3. diverticulitis. 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, abd surgery - Social History Smoking Status: Never Smoker - Medications Home Medications: Home Medications Medication Instructions Recorded Confirmed Last Taken Type Lisinopril/Hydrochlorothiazide 1 tab PO QDAY 04/13/13 05/07/16 05/06/16 History [Zestoretic 20-12.5 mg] Zolpidem [Ambien] 10 mg PO QHS PRN 04/13/13 05/08/16 05/06/16 History Clopidogrel [Plavix] 75 mg PO QDAY 05/07/16 05/07/16 05/07/16 History Tamsulosin [Flomax] 0.4 mg PO QDAY 05/07/16 05/07/16 05/07/16 History Dicyclomine [Bentyl] 10 mg PO QID PRN #20 capsule 05/08/16 Unknown Rx Ondansetron [Zofran Odt] 4 mg PO QID PRN #20 tab.rapdis 05/08/16 Unknown Rx polyethylene glycoL 3350 [Miralax 17 gm PO QDAY #30 packet 05/08/16 Unknown Rx 3350] Acetaminophen [Non-Aspirin Extra 500 mg PO Q6HR PRN #30 tablet 01/09/20 Unknown Rx Strength] Albuterol Sulfate [Proair 90 mcg IH Q4HR PRN #2 aer.pow.ba 01/09/20 Unknown Rx Respiclick] Metoclopramide [Reglan] 10 mg PO QID PRN #30 tablet 01/09/20 Unknown Rx HYDROcodone/APAP 5-325 [[place] 1 each PO Q6HR PRN #5 tablet 03/10/20 Unknown Rx 5/325] Polyethylene Glycol/Elect 4,000 ml PO ONCE #1 bottle 03/10/20 Unknown Rx [Golytely] Tamsulosin [Flomax] 0.4 mg PO QDAY 7 Days #7 cap 03/10/20 Unknown Rx ED Physical Exam - General Limitations: Physical Limitation General appearance: alert, in no apparent distress, obese - Head Head exam: Present: atraumatic, normocephalic - Eye Eye exam: Present: normal appearance, EOMI. Absent: nystagmus - ENT ENT exam: Present: normal exam, normal orophraynx, mucous membranes moist, normal external ear exam - Neck Neck exam: Present: normal inspection, full ROM. Absent: tenderness, meningismus - Respiratory Respiratory exam: Present: normal lung sounds bilaterally. Absent: respiratory distress, wheezes, rales, rhonchi, stridor, decreased breath sounds - Cardiovascular Cardiovascular Exam: Present: regular rate, normal rhythm, normal heart sounds. Absent: bradycardia, tachycardia, irregular rhythm, systolic murmur, diastolic murmur, rubs, gallop - GI/Abdominal GI/Abdominal exam: Present: soft, tenderness, normal bowel sounds, other (There is right pelvic tenderness to deep palpation. There is no redness, pus or streaking. Patient has pain with passive range of motion of the right hip, with internal and external rotation). Absent: distended, guarding, rebound, rigid, pulsatile mass - Rectal Rectal exam: Present: deferred - exam: Present: normal inspection. Absent: testicular tenderness External exam: Present: normal external exam, other (There is no testicular tenderness bilaterally.) - Extremities Exam Extremities exam: Present: normal inspection, full ROM, other (2+ pulses noted in the bilateral upper and lower extremities. There is no palpable cord. negative Homans sign. Muscular compartments are soft. The pelvis is stable.). Absent: calf tenderness - Back Exam Back exam: Present: normal inspection, full ROM. Absent: tenderness, CVA tenderness (R), CVA tenderness (L), paraspinal tenderness, vertebral tenderness - Neurological Exam Neurological exam: Present: alert, other (No facial droop. Tongue midline. Extraocular movements intact bilaterally. Facial sensation intact to light touch in V1, V2, V3 distribution bilaterally. 5 and a 5 strength in 4 extremities. Sensation intact to light touch in 4 extremities.) - Psychiatric Psychiatric exam: Present: normal affect, normal mood - Skin Skin exam: Present: warm, dry, intact, normal color. Absent: rash ED Course - Reevaluation(s) Reevaluation #1: 03/10/20 13:53 Differential diagnosis, including but not limited to: Sprain, strain, fracture, dislocation, appendicitis, colitis, diverticulitis Assessment and plan: 80-year-old gentleman presenting with right lower quadrant and pelvic pain. Obtain EKG, urinalysis, appropriate laboratory studies, treat pain, obtain CT scan of the abdomen pelvis, and reassess. Discussed this plan of care with the patient, who verbalized understanding. Reevaluation #2: 03/10/20 15:40 CT scan abdomen pelvis pending interpretation, urinalysis pending at this time. Care will be transferred to the oncoming physician, Dr. Dariela Miller, to follow-up on the aforementioned diagnostics, and arrange appropriate disposition. ED Medical Decision Making - Lab Data Result diagrams: 03/10/20 13:45 03/10/20 13:45 Vital Signs 03/10/20 03/10/20 12:59 13:14 Temperature 97.4 F L Pulse Rate 88 95 H Respiratory 19 18 Rate Blood Pressure 140/90 171/92 [Left] O2 Sat by Pulse 98 93 Oximetry - EKG Data -: EKG Interpreted by Me EKG shows normal: sinus rhythm Rate: normal - EKG Data 03/10/20 14:20 Sinus rhythm, 82 bpm, borderline leftward axis deviation, QTC 445 ms, there is low voltage, the EKG is not a STEMI. - Radiology Data Radiology results: report reviewed, image reviewed interpreted by me: 1 view x-ray of the pelvis, interpreted by myself: No fracture, no dislocation, DJD Print Report Referring Physician: ALEXIA TORREZ Patient Name: AYUSH RIOS Date of : 1940 Sex: Male Report Date: 2020-03-10 Report Status: Finalized Findings [facility] [address] [place] [address] XRay Report Signed Patient: AYUSH RIOS MR#: [id number] : 1940 Acct:[id number] Age/Sex: 80 / M ADM Date: 03/10/20 Loc: ED Attending Dr: Ordering Physician: ALEXIA TORREZ MD Date of Service: 03/10/20 Procedure(s): XR pelvis 1-2V Accession Number(s): [id number] cc: ALEXIA TORREZ MD Fluoro Time In Minutes: PELVIS AP 1338 INDICATION: Hip pain COMPARISON: CT abdomen and pelvis 01/09/2020 FINDINGS: Slight bilateral hip degenerative changes are seen. Mild lower lumbar degenerative changes are noted. No fractures or dislocations are seen. No definite focal bony lesions are identified. Small area of sclerosis or overlying calcification is seen overlying the lower right ilium which was not clearly present on CT in December. Given the age of this male patient and the possibility of a sclerotic lesion developing, follow-up is suggested. Signer Name: Nima Garrido MD Signed: 03/10/2020 1:54 PM Workstation Name: [id number] Transcribed By: GJ Dictated By: Nima Garrido MD Electronically Authenticated By: Nima Garrido MD Signed Date/Time: 03/10/20 1354 DD/ 1350 ED Disposition Clinical Impression: Hematuria, Constipation, Right groin pain, Acute abdominal pain Disposition: - TO HOME OR SELFCARE Condition: Stable Instructions: Acute Hematuria (ED), Abdominal Pain (ED) Prescriptions: Tamsulosin [Flomax] 0.4 mg PO QDAY 7 Days #7 cap Polyethylene Glycol/Elect [Golytely] 4,000 ml PO ONCE #1 bottle HYDROcodone/APAP 5-325 [[place] 5/325] 1 each PO Q6HR PRN #5 tablet PRN Reason: severe pain Referrals: PRIMARY CARE, [Primary Care Provider] - 3-5 Days LUIS PARSONS MD [Staff Physician] - 3-5 Days <KAY MILLER - Last Filed: 03/10/20 18:20> ED Review of Systems ROS: Stated complaint: SEVERE GROIN PAIN Other details as noted in HPI ED Course Vital Signs 03/10/20 03/10/20 12:59 13:14 Temperature 97.4 F L Pulse Rate 88 95 H Respiratory 19 18 Rate Blood Pressure 140/90 171/92 [Left] O2 Sat by Pulse 98 93 Oximetry ED Medical Decision Making - Lab Data Result diagrams: 03/10/20 13:45 03/10/20 13:45 - Radiology Data CT ABDOMEN AND PELVIS WITH CONTRAST INDICATION: Right lower quadrant pain, right pelvic pain, right hip pain, duration 4 days CONTRAST: 100 cc Omnipaque 300 IV COMPARISON: CT abdomen and pelvis 01/09/2020, pelvic radiograph today All CT scans at this location are performed using CT dose reduction for ALARA by means of automated exposure control. FINDINGS: No significant focal bony lesions are seen. The ovoid density overlying the right ilium on the pelvic radiograph is demonstrated to represent one of 3 ovoid dense ingested tablets in the proximal right colon and not a sclerotic bony lesion. Lung bases show mild chronic changes but no acute infiltrates or nodules. No pneumoperitoneum is seen. 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 Midline abdominal wall laxity is again seen with a large midline protrusion/herniation again seen extending inferiorly to below the level of the symphysis pubis in the anterior abdominal wall subcutaneous fat. No acute abnormalities are seen in this unusual herniation. Small bowel is contained but shows no abnormalities. This extends to the margin margin of the cutaneous layer in the midline in the lower pelvis and has a width of approximately 12 cm. Multiple cysts are again noted scattered throughout the liver without significant change or suspicious lesions. I see no abnormalities of the gallbladder, bile ducts, pancreas, adrenals, or spleen. No urinary obstructive changes are seen. Small renal probable cysts are again noted bilaterally. No lymphadenopathy is seen. No free fluid is noted. The sigmoid anastomosis is again seen. Colonic diverticulosis is noted without evidence of diverticulitis. No evidence of bowel obstruction is seen. Appendix appears within normal limits. Moderate amount of stool is seen in the rectum which may indicate mild rectal impaction. No focal inflammatory changes are seen. Prostate is moderately enlarged and impinges on the base of the bladder but no other bladder abnormalities are seen. Seminal vesicles are not enlarged. IMPRESSION: 1. Possible mild rectal impaction but no evidence of bowel obstruction 2. No other acute abnormality is seen 3. Small ovoid density noted on earlier radiograph overlie the right ilium is shown to be an ingested tablet not a sclerotic bone lesion 4. Prostatomegaly 5. Abdominal wall herniations as described without significant change or acute abnormality - Medical Decision Making I evaluated Mr. Rios. This gentleman has had right lower quadrant right groin pain for 4 to 5 days. He has also noticed constipation. He denies any trauma. He normally takes laxatives on a regular basis. He has noticed that stool has been hard and defecation has been painful. I have reviewed CT abdomen pelvis which revealed enlarged prostate with mild impingement on bladder, possible fecal impaction. Patient appears quite comfortable on exam. He did not have any abdominal tenderness. Abdomen was soft nontender voluntary guarding. Patient was jovial pleasant talkative. He was semi-supine with legs crossed at the ankle. Differential diagnosis: Constipation, groin strain, renal colic Acute inflammatory process such as appendicitis diverticulitis ruled out. Bowel obstruction not revealed on CT. Hematuria noted on urinalysis. This was a clean-catch urine sample. I have reviewed the CT scan images and report, I did not visualize hydronephrosis. I strongly encourage patient to follow-up with urologist. Considerations: Cystitis: Ureteral lithiasis, malignancy. I have prescribed GoLYTELY for constipation, [place] for pain. He understands that [place] will worsen constipation. I recommended using Tylenol for pain relief first. He understands to only use [place] if pain is not relieved with Tylenol. I prescribed 7 days of Flomax. He does not recall taking this medication although it is listed in the electronic medical record. He understands to follow-up with urology. He is followed by several specialist. His PCP is located in [place]. He will follow-up with both urologist in his PCP in [place]. On reexamination, patient was able to get up from the stretcher on his own. He ambulated around the room without discomfort. Critical care attestation.: If time is entered above; I have spent that time in minutes in the direct care of this critically ill patient, excluding procedure time. ED Disposition Is pt being admited?: No Does the pt Need Aspirin: No
--- NOTE | 2020-03-10 13:59 | XRay Report ---
[facility] AP 1338 INDICATION: Hip pain COMPARISON: CT abdomen and pelvis 01/09/2020 FINDINGS: Slight bilateral hip degenerative changes are seen. Mild lower lumbar degenerative changes are noted. No fractures or dislocations are seen. No definite focal bony lesions are identified. Small area of sclerosis or overlying calcification is seen overlying the lower right ilium which was not clearly present on CT in December. Given the age of this male patient and the possibility of a sclero tic lesion developing, follow-up is suggested. Signer Name: Nima Garrido MD Signed: 03/10/2020 1:54 PM Workstation Name: [id number]
[2020-03-10 14:08] LABS: Mean Corpuscular HGB Conc 36 % (32-34); Mean Corpuscular Volume 92 fl (84-94); Platelet Count 164 K/mm3 (140-440); Red Blood Count 4.91 M/mm3 (3.65-5.03); Red Cell Distribution Width 13.2 % (13.2-15.2)
[2020-03-10 14:20] LABS: BUN/Creatinine Ratio 21; Blood Urea Nitrogen 17 mg/dL (9-20); Calcium 9.2 mg/dL (8.4-10.2); Hemolysis Index 11
[2020-03-10 14:27] LABS: Hematocrit 45.2 % (35.5-45.6); Hemoglobin 16.1 gm/dl (11.8-15.2)
--- NOTE | 2020-03-10 16:14 | Cat Scan Report ---
CT ABDOMEN AND PELVIS WITH CONTRAST INDICATION: Right lower quadrant pain, right pelvic pain, right hip pain, duration 4 days CONTRAST: 100 cc Omnipaque 300 IV COMPARISON: CT abdomen and pelvis 01/09/2020, pelvic radiograph today All CT scans at this location are performed using CT dose reduction for ALARA by means of automated e xposure control. FINDINGS: No significant focal bony lesions are seen. The ovoid density overlying the right ilium on the pelvic radiograph is demonstrated to represent one of 3 ovoid dense ingested tablets in the proxi mal right colon and not a sclerotic bony lesion. Lung bases show mild chronic changes but no acute infiltrates or nodules. No pneumoperitoneum is seen . 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 Midline abdominal wall laxity is again seen with a large midline protrusion/herniation ag ain seen extending inferiorly to below the level of the symphysis pubis in the anterior abdominal wal l subcutaneous fat. No acute abnormalities are seen in this unusual herniation. Small bowel is contai ramila but shows no abnormalities. This extends to the margin margin of the cutaneous layer in the midli ne in the lower pelvis and has a width of approximately 12 cm. Multiple cysts are again noted scattered throughout the liver without significant change or suspiciou s lesions. I see no abnormalities of the gallbladder, bile ducts, pancreas, adrenals, or spleen. No u rinary obstructive changes are seen. Small renal probable cysts are again noted bilaterally. No lymph adenopathy is seen. No free fluid is noted. The sigmoid anastomosis is again seen. Colonic diverticulosis is noted without evidence of diverticul itis. No evidence of bowel obstruction is seen. Appendix appears within normal limits. Moderate amoun t of stool is seen in the rectum which may indicate mild rectal impaction. No focal inflammatory changes are seen. Prostate is moderately enlarged and impinges on the base of t he bladder but no other bladder abnormalities are seen. Seminal vesicles are not enlarged. IMPRESSION: 1. Possible mild rectal impaction but no evidence of bowel obstruction 2. No other acute abnormality is seen 3. Small ovoid density noted on earlier radiograph overlie the right ilium is shown to be an ingested tablet not a sclerotic bone lesion 4. Prostatomegaly 5. Abdominal wall herniations as described without significant change or acute abnormality Signer Name: Nima Garrido MD Signed: 03/10/2020 4:09 PM Workstation Name: [id number]
[2020-03-10 17:42] LABS: Amorphous Crystals,Urine Few; Bilirubin,Urine NEG (Negative); Blood,Urine NEG (Negative); Color,Urine Straw (Yellow); Mucus,Urine FEW /HPF; Protein,Urine <15 mg/dL mg/dL (Negative); Urobilinogen,Urine < 2.0 mg/dL (<2.0)
[2020-03-10 20:53] VITALS: BP 153/62
== END 2020-03-10 19:45 | disposition home or self-care (01) ==
LOC: ED 12:46
DX: R10.32 Left lower quadrant pain (principal); K59.00 Constipation, unspecified; R31.9 Hematuria, unspecified; I10 Essential (primary) hypertension; Z86.73 Personal history of transient ischemic attack (TIA), and cerebral infarction without residual deficits; Z79.899 Other long term (current) drug therapy; Z88.0 Allergy status to penicillin; Z98.890 Other specified postprocedural states
CPT/HCPCS: 36415; 72170; 74177; 80048; 81001; 82550; 83735; 85027; 93005; 96361; 96374; 96375; 96376; 99285; J1170; J2405; J7050; Q9967